=== PATIENT | female | born 1990 | race Caucasian/White ===

== ENCOUNTER 2018-09-17 18:22 | Emergency (ER) | payer BC, SELFPAY ==
[2018-09-17 18:31] VITALS: RESP 18
--- NOTE | 2018-09-17 19:49 | C.PDOC ---
History Of Present Illness Patient is a 28 year old female with no past medical history presenting with complaints of B/L lower abdominal pain for approximately 2 weeks. Patient reports abdominal pain is constant pressure with intermittent episodes of sharp pain in B/L lower quadrants, also reports low back pressure. Patient reports nausea yesterday and today with 2 episodes of vomiting today consisting of food/saliva. Patient reports last normal BM over 1 week ago with small BM this morning, hard pellets with straining. Pt reports she started taking protein shakes approx 1 week ago. Reports FDLMP 07/30 with history of regular periods. Pt reports taking 2 tests at home, both negative; she is sexually active without contraceptive use. Denies MENDEZ, dizziness, chest pain, SOB, vaginal discharge/bleeding, urinary changes. Chief Complaint (Nursing): Abdominal Pain History Per: Patient History/Exam Limitations: no limitations Onset/Duration Of Symptoms: Days Current Symptoms Are (Timing): Still Present Severity: Moderate Location Of Pain/Discomfort: RLQ, LLQ Radiation Of Pain To:: None Quality Of Discomfort: Sharp, Pressure Associated Symptoms: Nausea, Vomiting, Back Pain, Constipation. denies: Fever, Chills Last Bowel Movement: Other (1+ week) Recent travel outside of the [place]: No Past Medical History Reviewed: Historical Data, Nursing Documentation, Vital Signs Vital Signs: Last Vital Signs Temp 98.6 F 09/17/18 18:28 Pulse 92 H 09/17/18 18:28 Resp 18 09/17/18 18:28 BP 132/84 09/17/18 18:28 Pulse Ox 100 09/17/18 18:28 - Medical History PMH: No Chronic Diseases - [facility] Procedures Left breast lumpectomy x2 Family History: States: Unknown Family Hx - Social History Hx Tobacco Use: Yes Hx Alcohol Use: Yes Hx Substance Use: No - Immunization History Hx Tetanus Toxoid Vaccination: No Hx Influenza Vaccination: No Hx Pneumococcal Vaccination: No Review Of Systems Constitutional: Negative for: Fever, Chills Cardiovascular: Negative for: Chest Pain, Palpitations Respiratory: Negative for: Shortness of Breath Gastrointestinal: Positive for: Nausea, Vomiting, Abdominal Pain, Constipation. Negative for: Melena, Hematochezia Genitourinary: Negative for: Dysuria, Hematuria Musculoskeletal: Positive for: Back Pain (prseeure) Physical Exam - Physical Exam Appears: Non-toxic, No Acute Distress Skin: Normal Color, Warm, Dry Head: Atraumatic, Normacephalic Eye(s): bilateral: Normal Inspection, PERRL, EOMI Oral Mucosa: Moist Cardiovascular: Rhythm Regular, No Murmur Respiratory: Normal Breath Sounds Gastrointestinal/Abdominal: Bowel Sounds, Soft, Tenderness (RLQ/LLQ), No Distention, No Guarding, No Rebound Back: Normal Inspection, No CVA Tenderness Extremity: No Tenderness, No Pedal Edema Neurological/Psych: Oriented x3 ED Course And Treatment - Laboratory Results Result Diagrams: 09/17/18 20:24 09/17/18 20:24 Lab Interpretation: Normal Urine POC: Negative O2 Sat by Pulse Oximetry: 100 Pulse Ox Interpretation: Normal Medical Decision Making Medical Decision Makin28 year old female with abdominal pain 2 wks CBC CMP UA Urine POC All finding negative, pt stable for discharge home Disposition Counseled Patient/Family Regarding: Studies Performed, Diagnosis, Need For Followup, Rx Given - Disposition Referrals: [facility] [Outside] [facility] [Outside] Disposition: HOME/ ROUTINE Disposition Time: 21:31 Condition: STABLE Additional Instructions: Patient is stable for discharge home. Patient is encouraged to increase fluid intake. Patient instructed to take Mag Citrate to help with symptoms of constipation. Patient instructed to follow up with PMD if symptoms persist, or return to ED with any worsening of symptoms. Instructions: Constipation, Adult (DC) Forms: [facility] (Portuguese) - POA Present On Arrival: None - Clinical Impression Clinical Impression: Constipation
[2018-09-17 20:31] LABS: BASO # 0.1 K/uL (0.0-0.2); EOS # 0.3 K/uL (0.0-0.7); HEMOGLOBIN 13.4 g/dL (11.0-16.0); LYMPH # 2.5 K/uL (1.0-4.3); LYMPH % 36.1 % (20.0-40.0); MEAN CORPUSCULAR HEMOGLOBIN 30.7 pg (27.0-31.0); MEAN CORPUSCULAR HGB CONC 34.1 g/dL (33.0-37.0); MEAN PLATELET VOLUME 9.2 fL (7.2-11.7); MONO # 0.5 K/uL (0.0-0.8); MONO % 7.1 % (0.0-10.0); NEUT # 3.5 K/uL (1.8-7.0); NEUT % 51.8 % (50.0-75.0); RBC 4.36 Mil/uL (3.80-5.20); RED CELL DISTRIBUTION WIDTH 13.5 % (11.5-14.5); WHITE BLOOD COUNT 6.8 K/uL (4.8-10.8)
[2018-09-17 20:40] LABS: URINE AMORPHOUS SEDIMENT MANY /ul (<OCC); URINE BACTERIA RARE (<OCC); URINE BILIRUBIN NEGATIVE (NEGATIVE); URINE BLOOD NEGATIVE (NEGATIVE); URINE CLARITY Hazy (Clear); URINE COLOR Yellow (YELLOW); URINE GLUCOSE (UA) NORMAL (Normal); URINE LEUKOCYTE ESTERASE NEG Leu/uL (Negative); URINE PROTEIN NEGATIVE (NEGATIVE); URINE UROBILINOGEN NORMAL mg/dL (0.2-1.0)
[2018-09-17 20:44] LABS: ALB/GLOB RATIO 1.5 (1.0-2.1); ALBUMIN 4.6 g/dL (3.5-5.0); ALT/SGPT 17 U/L (9-52); AST/SGOT 26 U/L (14-36); BLOOD UREA NITROGEN 12 mg/dL (7-17); GFR NON-AFRICAN AMERICAN > 60
[2018-09-17] MEDS ORDERED: Magnesium Citrate Oral SOL (300 ml) PO ONE (21:30)
[2018-09-17] MEDS ORDERED: Magnesium Citrate Oral SOL (300 ml) ONE (21:36)
[2018-09-17 21:43] VITALS: BP 117/79; PULSE 86; TEMP 98.3; O2SAT 98
== END 2018-09-17 21:44 | disposition home or self-care (01) ==
LOC: C.ER 18:22
DX: K59.00 Constipation, unspecified (principal)